=== PATIENT | female | born 1975 | race Caucasian/White ===

== ENCOUNTER 2018-01-12 11:36 | Emergency (ER) | payer MEDICAID | END 2018-01-12 12:38 | disposition home or self-care (01) | LOC: E/R 11:36 | DX: M25.562 Pain in left knee (principal); I10 Essential (primary) hypertension | CPT/HCPCS: 73562; 99283-25 ==

== ENCOUNTER 2018-06-09 08:11 | Emergency (ER) | payer MEDICAID ==
[2018-06-09] MEDS: IBUPROFEN 800 MG TAB PO (08:33)
== END 2018-06-09 09:51 | disposition home or self-care (01) ==
LOC: FTE 08:11
DX: M25.562 Pain in left knee (principal); I10 Essential (primary) hypertension
CPT/HCPCS: 73562; 99283-25

== ENCOUNTER 2018-08-27 09:38 | Emergency (ER) | payer MEDICAID | END 2018-08-27 10:48 | disposition home or self-care (01) | LOC: FTE 09:38 | DX: J02.0 Streptococcal pharyngitis (principal); I10 Essential (primary) hypertension | CPT/HCPCS: 99283 ==

== ENCOUNTER 2019-05-16 14:21 | Emergency (ER) | payer MEDICAID ==
[2019-05-16] MEDS: MECLIZINE 12.5 MG TAB PO (15:10)
[2019-05-16] MEDS: ONDANSETRON (ODT) 4 MG TAB ODT (15:10)
== END 2019-05-16 15:53 | disposition home or self-care (01) ==
LOC: FTE 14:21
DX: R42 Dizziness and giddiness (principal)
CPT/HCPCS: 99283; Z7502